=== PATIENT | male | born 1955 | race Caucasian/White ===

== ENCOUNTER 2016-03-04 00:12 | Emergency (ER) | payer MEDICAID ==
[~2016-03-04] VITALS: Ht 188 cm; Wt 70.3 kg
[~2016-03-04 00:12] MED LIST: AMOXIL500 MG PO; DARVOCET-N 1001 EACH PO; DOXYCYCLINE HY100 M4 PO; EC NAPROSYN500 MG PO; FLEXERIL10 MG PO; HYDROCODONE-APA1 TA1 PO; LORTAB 5/500 501 TAB PO; ROBAXIN500 MG PO; TAMIFLU 75MG CA75 MG PO; VALIUM10 MG PO
--- NOTE | 2016-03-04 00:28 | Emergency Room Report ---
History of Present Illness Time Seen by MD Ferrara Presenting Problem in Triage Pt arrived:Walked Presenting Problem:PT COMPLAINING PAIN IN HIS CHEST WHEN HE TAKES A DEEP BREATH. PT STATES HE HAS ALSO HAD A COUGH. PT STATES HIS PAIN HAS NOW GONE TO HIS BACK. 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 N Clinical Suspician of Infection? N Mental Status: 1 - Regular (Normal Baseline) Sepsis Risk:Low Sepsis Risk Have you (or family members/close friends) recently traveled outside the [place]? N If Yes, where/when: Have you had exposure to infectious disease within the past month? N TB? Other? Specify: Source patient, RN notes reviewed, old records Exam Limitations no limitations Comment cough and sob with no hemoptysis over the last 2 days Cardiac Chest Pain Chest pain indicative of cardiac No Timing/Duration this evening Severity moderate ALLERGIES Coded Allergies: No Known Allergies (03/04/16) Home Medications Reported Medications No Known Home Medications History Medical History General CAD? No Angina: No PR: No Hypertension? No Hyperlipidemia? No CHF? No DVT? No PE? No COPD? No Asthma? No Anemia? No GERD? No Gastric ulcers? No GI Bleed? No Hernia? No Thyroid Problems? No Hypothyroidism? No CVA? No Seizures? No Diabetes? No Renal Insuffiency? No End Stage Renal Disease? No UTI? No Stones? No BPH? No GB Disease: No Nephritic Syndrome? No Asplenia? No Hepatitis? No Sickle Cell Disease? No Arthritis? No Migraines? No Cataracts? No Glaucoma? No MRSA? No HIV? No TB? No Anxiety? No Depression? No Cancer? No More? No Immunization Hx DT/Tetanus 05/15/2015 Surgical Hx Previous Surgery?Y Appendix RIGHT SHOULDER RIGHT KNEE SINUS LEFT HAND-MIDDLE FINGER LEFT 2ND TOES Social History Smoking Hx Smoker: Never Smoker Tobacco: No Type N/A Are you/the child exposed to second-hand smoke: No Alcohol Alcohol: Yes Drugs none Review of Systems All Other Systems Reviewed and Negative Constitutional denies fever Eyes denies drainage ENT denies: ear pain, epistaxis, throat pain. Respiratory cough, shortness of breath, denies wheezing Cardiovascular chest pain, denies palpitations, denies syncope Gastrointestinal denies abdominal pain, denies diarrhea, denies vomiting Genitourinary denies: dysuria, frequency, hesitancy, hematuria. Musculoskeletal denies back pain, denies joint pain, denies neck pain Skin denies rash Psychiatric/Neurological denies headache, denies seizure Physical Exam Vital Signs Vital Signs Date Time Temp Pulse Resp B/P Pulse O2 O2 Flow FiO2 Ox Delivery Rate 03/04 0157 65 18 124/75 96 03/04 0153 18 03/04 0050 65 18 147/84 95 03/04 0013 98.2 71 18 150/90 97 - WBC >12,000 or <4,000 or 10% bands? 2 or more SIRS Criteria Met? B/P:124/75 MAP:110 Creatinine >2.0? UA output<0.5ml/kg/hr for 2 hrs? Platelet count >100,000? Lactate >2.0mmol/1? INR >1.2 or PTT > than 60 sec? Evidence of Organ Dysfunction? Provider documented clinical suspician of infection? N Sepsis Criteria Count: 0 Sepsis Risk: Low Sepsis Risk General Appearance no apparent distress Eye Exam - bilateral eye PERRL, bilateral eye EOMI Ear, Nose, Throat normal ENT inspection Neck supple Respiratory Status No: respiratory distress. Lung Sounds bilateral: lungs clear. 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 No Results/Orders Laboratory Tests 03/04/16 0221: Troponin I < 0.02 03/04/16 0030: Sodium 143, Potassium 3.6, Chloride 103, Carbon Dioxide 34 H, BUN 12, Creatinine 1.2, Estimated Creat Clear 67, Estimated GFR (MDRD) 62, Glucose 117 H, Calcium 9.4, Total Bilirubin 0.2, AST 30, ALT 26, Alkaline Phosphatase 98, Creatine Kinase 50, CK-MB (CK-2) Rel Index 1.2, CK and CKMB Interp 0.6, Troponin I < 0.02, Total Protein 8.2, Albumin 4.0, Globulin 4.2 H, Albumin/Globulin Ratio 1.0 L, WBC 12.4 H, RBC 5.43, Hgb 16.1, Hct 47.8, MCV 88.1, RDW 14.5, Plt Count 290, MPV 8.8, Gran % 58.4, Gran # 7.3, Lymphocytes % 28.4, Monocytes % 6.5 , Eosinophils % 6.1, Basophils % 0.6, Lymphocytes # 3.5, Monocytes # 0.8, Eosinophils # 0.8 H, Basophils # 0.1, PUBS MCHC 33.6, MCH 29.6, Alcohols 0 Current Medication Orders Sig/Elva Start time Last Medication Dose Route Stop Time Status Admin Ketorolac 0 .STK-MED ONE 03/04 149 DC Tromethamine .ROUTE Levofloxacin 0 .STK-MED ONE 03/04 148 DC .ROUTE Sodium Chloride 50 ML .STK-MED ONE 03/04 148 DC IV Ceftriaxone Sodium 0 .STK-MED ONE 03/04 147 DC IV Methylprednisolone 0 .STK-MED ONE 03/04 147 DC Sodium Succinate .ROUTE Ceftriaxone Sodium 1 GM ONCE ONE 03/04 144 DC 03/04 Sodium Chloride 50 ML IV 03/04 213 015 Ketorolac 30 MG ONCE ONE 03/04 144 DC 03/04 Tromethamine IV 03/04 145 015 Levofloxacin 500 MG ONCE ONE 03/04 144 DC 03/04 PO 03/04 145 015 Methylprednisolone 125 MG ONCE ONE 03/04 144 DC 03/04 Sodium Succinate IV 03/04 145 015 Aspirin 325 MG ONCE ONE 03/04 29 DC 03/04 PO 03/04 30 0021 Sodium Chloride 10 ML PRN PRN 03/04 29 AC IV 03/05 17 Aspirin 0 .STK-MED ONE 03/04 19 DC .ROUTE Orders Procedure Date/time Status TROPONIN I 03/04 214 Complete ALCOHOL 03/04 35 Complete 12 LEAD EKG-VERA (INITIAL) 03/04 18 Active ELECTROCARDIOGRAM REQUEST 03/04 18 Active CHEST(2 VIEWS-NOT PORTABLE) 01/03 0019 Active IV SALINE LOCK 03/04 18 Active CBC WITH AUTO DIFF 03/04 18 Complete CARDIAC ENZYMES 03/04 18 Complete CHEM 12 PROFILE 03/04 18 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 of ischemic chgs XRAY/CT/US XRAY/CT/US XRAY chest XR interpretation by reviewed by me Xray Results abnormal (old changes ) Departure Departure Time of Disposition 314 Disposition DC Home or Self Care(routine) Clinical Impression Primary Impression: Bronchitis Condition STABLE Patient Instructions DI for Cough -- Adult Additional Instructions fluids and see pcp for follo wup Discharge Counseling Counseled pt/family regarding diagnosis, test results, follow up needs Prescriptions Current Visit Scripts Ciprofloxacin HCl (Cipro 500MG TAB) 500 MG PO BID #14 TAB Prednisone (Prednisone 20MG) 20 MG PO BID #10 TAB ED Critical Care Critical Care No at 0316
[2016-03-04 00:54] LABS: HEMOGLOBIN 16.1 g/dL (14.1-18.0); LYMPH # 3.5 K/mm3 (0.7-4.5); LYMPH % 28.4 % (10-50)
[2016-03-04 01:17] LABS: BUN 12 mg/dL (7-18)
[2016-03-04 01:23] LABS: GFR (ESTIMATED) 62 ML/MIN (>60)
[2016-03-04] MEDS ORDERED: CIPRO 500MG TA500 MG PO (03:16)
[2016-03-04] MEDS ORDERED: PREDNISONE 20MG20 MG PO (03:16)
[2016-03-04 03:24] VITALS: BP 136/81
--- NOTE | 2016-03-04 06:25 | RADIOLOGY REPORT PS360 ---
CHEST(2 VIEWS-NOT PORTABLE) HISTORY: CHEST PAIN, COUGH COMPARISON: 05/21/2015 FINDINGS: The cardiomediastinal silhouette and pulmonary vascularity are within normal limits. Miliary calcified nodules are present consistent with old granulomatous disease. Fibrotic changes are present in the right lung base. Minimal left basilar atelectasis There is minimal blunting of the left CP angle consistent with small left effusion. The remaining lungs are clear. No acute bony anomalies IMPRESSION: 1. Old granulomatous disease. 2. Right basilar fibrotic change. 3. Mild left basilar atelectasis with small left effusion.
== END 2016-03-04 03:25 | disposition home or self-care (01) ==
LOC: ER 00:12
PROVIDERS: Emergency Medicine
DX: J20.9 Acute bronchitis, unspecified (principal)
CPT/HCPCS: G6040

== ENCOUNTER 2016-03-12 05:37 | Emergency (ER) | payer MEDICAID ==
[~2016-03-12] VITALS: Ht 188 cm; Wt 70.3 kg
[~2016-03-12 05:37] MED LIST changes: +CIPRO 500MG TA500 MG PO; +PREDNISONE 20MG20 MG PO
--- NOTE | 2016-03-12 05:57 | Emergency Room Report ---
History of Present Illness Time Seen by 05Stanislaw Presenting Problem in Triage Pt arrived:Walked Presenting Problem:REPORTS WAS SEEN IN ER LAST WEEK DX WITH BRONCHITIS, STARTED ON ABX AND STERIODS. MEDS COMPLETED AND GETTING WORSE. 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 N Clinical Suspician of Infection? N Mental Status: 1 - Regular (Normal Baseline) Sepsis Risk:Low Sepsis Risk Have you (or family members/close friends) recently traveled outside the [place]? N If Yes, where/when: Have you had exposure to infectious disease within the past month? N TB? Other? Specify: Source patient, RN notes reviewed, family, old records Exam Limitations no limitations Comment lt upper abd and lower chest pain with hx of gerd sx and no melena Cardiac Chest Pain Chest pain indicative of cardiac No Timing/Duration this evening Severity moderate ALLERGIES Coded Allergies: No Known Allergies (03/04/16) Home Medications Reported Medications No Known Home Medications History Medical History General CAD? No Angina: No VT: No Hypertension? No Hyperlipidemia? No CHF? No DVT? No PE? No COPD? No Asthma? No Anemia? No GERD? No Gastric ulcers? No GI Bleed? No Hernia? No Thyroid Problems? No Hypothyroidism? No CVA? No Seizures? No Diabetes? No Renal Insuffiency? No End Stage Renal Disease? No UTI? No Stones? No BPH? No GB Disease: No Nephritic Syndrome? No Asplenia? No Hepatitis? No Sickle Cell Disease? No Arthritis? No Migraines? No Cataracts? No Glaucoma? No MRSA? No HIV? No TB? No Anxiety? No Depression? No Cancer? No More? No Immunization Hx DT/Tetanus 05/15/2015 Surgical Hx Previous Surgery?Y Appendix RIGHT SHOULDER RIGHT KNEE SINUS LEFT HAND-MIDDLE FINGER LEFT 2ND TOES Social History Smoking Hx Smoker: Current Some Day Smoker Tobacco: No Alcohol Alcohol: Yes Drugs none Review of Systems All Other Systems Reviewed and Negative Constitutional denies fever Eyes denies drainage ENT denies: ear pain, epistaxis, throat pain. Respiratory denies cough, denies shortness of breath, denies wheezing Cardiovascular see HPI, chest pain, denies palpitations, denies syncope Gastrointestinal see HPI, abdominal pain, denies nausea, denies vomiting Genitourinary denies: dysuria, frequency, hesitancy, hematuria. Musculoskeletal denies back pain, denies joint pain, denies joint swelling, denies neck pain Skin denies rash Psychiatric/Neurological denies headache, denies seizure Physical Exam Vital Signs Vital Signs Date Time Temp Pulse Resp B/P Pulse O2 O2 Flow FiO2 Ox Delivery Rate 03/12 0719 79 18 166/94 96 03/12 0636 98.6 100 18 167/107 96 03/12 0540 98.6 100 18 156/107 96 - WBC >12,000 or <4,000 or 10% bands? 2 or more SIRS Criteria Met? B/P:166/94 MAP:123 Creatinine >2.0? UA output<0.5ml/kg/hr for 2 hrs? Platelet count >100,000? Lactate >2.0mmol/1? INR >1.2 or PTT > than 60 sec? Evidence of Organ Dysfunction? Provider documented clinical suspician of infection? N Sepsis Criteria Count: 1 Sepsis Risk: Low Sepsis Risk General Appearance no apparent distress Eye Exam - bilateral eye PERRL, bilateral eye EOMI Ear, Nose, Throat normal ENT inspection Neck supple Respiratory Status No: respiratory distress. Lung Sounds bilateral: lungs clear. 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 No Results/Orders Laboratory Tests 03/12/16 0600: Lactic Acid 1.3 03/12/16 06: Creatine Kinase 24 L, CK-MB (CK-2) Rel Index 2.1, CK and CKMB Interp < 0.5, Troponin I < 0.02 03/12/16 0600: Amylase 44, Lipase 178 03/12/16 0600: Sodium 139, Potassium 3.7, Chloride 103, Carbon Dioxide 29, BUN 15, Creatinine 1.2, Estimated Creat Clear 67, Estimated GFR (MDRD) 62, Glucose 127 H, Calcium 9.0, Total Bilirubin 0.8, AST 15, ALT 17, Alkaline Phosphatase 79, Total Protein 7.4, Albumin 3.6, Globulin 3.8 H, Albumin/Globulin Ratio 0.9 L, WBC 12.7 H, RBC 5.42, Hgb 16.1, Hct 47.1, MCV 86.8, RDW 14.8, Plt Count 308, MPV 8.9, Gran % 52.8, Gran # 6.7, Lymphocytes % 32.2, Monocytes % 8.3, Eosinophils % 5.9, Basophils % 0.8, Lymphocytes # 4.1, Monocytes # 1.1 H, Eosinophils # 0.8 H, Basophils # 0.1, PUBS MCHC 34.3, MCH 29.7 Current Medication Orders Sig/Elva Start time Last Medication Dose Route Stop Time Status Admin Diatrizoate Meglum/ 20 ML ONCE ONE 03/12 0730 UNV Diatrizoate Sod PO 03/12 0731 Iopamidol 75 ML ONCE ONE 03/12 0730 UNV 03/12 IV 03/12 0731 0720 Sodium Chloride 10 ML PRN PRN 03/12 0730 UNV 03/12 IV 03/12 0849 0720 Diatrizoate Meglum/ 0 .STK-MED ONE 03/12 0634 DC Diatrizoate Sod .ROUTE Diatrizoate Meglum/ 30 ML ONCE ONE 03/12 0630 DC 03/12 Diatrizoate Sod PO 03/12 0631 0635 Sodium Chloride 10 ML PRN PRN 03/12 0600 AC IV 03/13 0549 Orders Procedure Date/time Status DIET-NOTHING BY MOUTH 03/[address] SCAN REQ 03/12 630 Complete LIPASE 03/12 630 Complete AMYLASE 03/12 0531 Complete CARDIAC ENZYMES 03/12 0557 Complete IV SALINE LOCK 03/12 0549 Active CULTURE, BLOOD 03/12 0549 Active LACTIC ACID 03/12 0549 Complete COMPLETE METABOLIC PANEL 03/12 0549 Complete CBC WITH AUTO DIFF 03/[address] CHEST W/ CONTRAST 03/[address] ABD & PELVIS W/ CONTRAST 03/12 UNK Active XRAY/CT/US XRAY/CT/US 1 XRAY chest XR interpretation by reviewed by me Xray Results normal/NAD XRAY/CT/US 2 CT abdomen, pelvis, chest CT interpretation by discussed w/radiologist Time results known: 747 CT Results abnormal (nonspecific) Departure Departure Time of Disposition 747 Disposition DC Home or Self Care(routine) Clinical Impression Primary Impression: Abdominal pain Qualifiers: Abdominal location: left upper quadrant Qualified Code: R10.12 - Left upper quadrant pain Condition STABLE Patient Instructions DI for Abdominal Pain-Adult Additional Instructions see pcp for follow up Discharge Counseling Counseled pt/family regarding diagnosis, test results, medications/RX, follow up needs Prescriptions Current Visit Scripts No Known Home Medications ED Critical Care Critical Care No at 0752
[2016-03-12 06:21] LABS: HEMOGLOBIN 16.1 g/dL (14.1-18.0); LYMPH # 4.1 K/mm3 (0.7-4.5); LYMPH % 32.2 % (10-50)
--- NOTE | 2016-03-12 07:10 | RADIOLOGY REPORT PS360 ---
CHEST(2 VIEWS-NOT PORTABLE) HISTORY: Left-sided chest pain on breathing C/O PAIN COMPARISON: 03/04/2016 FINDINGS: The cardiomediastinal silhouette and pulmonary vascularity are within normal limits. Miliary calcified granulomas. No lobar consolidation or collapse. No acute bony abnormalities. IMPRESSION: No change with no acute finding
[2016-03-12] MEDS ORDERED: PROTONIX 40MG T40 MG PO (07:53)
[2016-03-12 08:17] VITALS: BP 163/98
--- NOTE | 2016-03-12 16:02 | RADIOLOGY REPORT PS360 ---
CT CHEST W/ CONTRAST INDICATION: Mid and upper chest pain radiating into the back CHEST PAIN,ESOPHAGEAL,STOMACH PAIN COMPARISON: None TECHNIQUE: Axial images are obtained with contrast. Sagittal and coronal reformatted images are reviewed as well. FINDINGS: There is no evidence of aortic aneurysm or dissection. Normal heart size. Minimal pericardial thickening anteriorly. No large central pulmonary embolus evident. The study is not tailored for the pulmonary arteries. No mediastinal or hilar mass. Small hiatal hernia. There is mild fibronodular changes present in both apices. A 6 mm noncalcified nodule is present in the right apex. There are multiple scattered calcified granulomas. No consolidation or collapse. There is hyperinflation with attenuation of the peripheral pulmonary vessels and peribronchial thickening consistent with obstructive chronic bronchitis. There is trace left pleural effusion. The right lobe of the thyroid gland is enlarged with multiple hypodensities. There is gynecomastia on both sides. IMPRESSION: 1. No evidence of aortic aneurysm or dissection. 2. Old granulomatous disease with suspected obstructive chronic bronchitis. 3. 6 mm noncalcified nodule right apex. Six-month follow-up recommended. 4. Trace left pleural effusion with minimal pericardial thickening anteriorly. 5. Small hiatal hernia. 6. Enlarged right lobe of the thyroid gland with multiple hypodense nodules IMPRESSION:
--- NOTE | 2016-03-12 16:07 | RADIOLOGY REPORT PS360 ---
CT ABD PELVIS W/ CONTRAST CLINICAL INDICATION: Abdominal pain, mid to upper abdominal pain radiating into the back CHEST PAIN,ESOPHAGEAL,STOMACH PAIN COMPARISON: None TECHNIQUE: Axial images obtained with sagittal and coronal reformats. PROCEDURE: Oral Contrast: None IV Contrast: 75 mL [id number]. FINDINGS: There is small left pleural effusion. The liver, spleen, pancreas, gallbladder, and adrenal glands are unremarkable. There is a 3 cm isodensity projecting off the medial aspect of the right kidney consistent with a renal cyst with a small calcification noted along the medial aspect and may be due to a small stone. No hydronephrosis. Para there is a moderate amount retained colonic feces in the ascending and transverse colon. No evidence of appendicitis or diverticulitis. No intestinal obstruction or free air. No acute bony anomalies. IMPRESSION: 1. No acute intra-abdominal or pelvic pathology. 2. Mild amount retained colonic feces. 3. Right renal cyst with nonobstructing stone along the superior pole the right kidney
== END 2016-03-12 08:17 | disposition home or self-care (01) ==
LOC: ER 05:37
PROVIDERS: Emergency Medicine
DX: R10.12 Left upper quadrant pain (principal); Z72.0 Tobacco use; K21.9 Gastro-esophageal reflux disease without esophagitis; J20.9 Acute bronchitis, unspecified
CPT/HCPCS: Q9967

== ENCOUNTER → 2016-06-17 | Outpatient (CLI) | payer MEDICAID ==
[~2016-06-17] MED LIST changes: +PROTONIX 40MG T40 MG PO
--- NOTE | 2016-06-17 17:06 | RADIOLOGY REPORT PS360 ---
US RUQ-(ABD LTD)1ORGAN/QUAD/FU HISTORY: RUQ PAIN ORDERING PHYSICIAN: Rocky Bearden MD PATIENT AGE: 60 years COMPARISON: None FINDINGS: PANCREAS: Unremarkable. No obvious mass or abnormal fluid collection. No ductal dilatation LIVER: No focal liver lesions demonstrated. Homogeneous echogenicity. No intrahepatic biliary ductal dilatation evident. There are few fatty areas within the liver RIGHT KIDNEY: 3 cm right renal cyst laterally. Mild right renal cortical scarring is noted. Normal size and echogenicity. No hydronephrosis GALLBLADDER: No gallstones, gallbladder wall thickening, pericholecystic fluid, or biliary dilatation. IMPRESSION: 1. Negative gallbladder ultrasound. 2. 3 cm right renal cyst
== END ==
LOC: RAD 07:47
DX: R10.11 Right upper quadrant pain (principal)

== ENCOUNTER → 2016-07-03 | Outpatient (CLI) | payer MEDICAID ==
--- NOTE | 2016-07-03 15:06 | RADIOLOGY REPORT PS360 ---
History and Indications: Chest pain palpitation Procedure: Patient exercised on Sanket protocol 7 1/2 minutes, resting heart rate was 73 beats per resting blood pressure 132/85, with exercise maximum heart rate achieved was 1 minute which is more than 85% of the maximum predicted heart rate and a blood pressure was 200/80. Test was stopped due to leg fatigue and shortness of breath, patient denied complained of chest pain. Patient has good exercise capacity achieved 10.1mets of workload on treadmill, the blood pressure response to exercise was hypertensive. Electrocardiogram: Resting electrocardiogram showed sinus rhythm premature ventricular complex, with exercise there is less than 1.[address] segment depression noted from the baseline EKG. The EKG portion of the exercise Myoview is negative for ischemia. Cardiac stress and resting SPECT images: Cardiac stress and the suspect images were obtained using technetium 99 Myoview 11.2 mCi at rest and 30.8 mCi at stress, gated SPECT further analysis of segmental wall motion and calculation of the ejection fraction also done. Cardiac stress and the suspect images show a mild fixed defect in the inferior wall with normal contractility in the gated SPECT is likely secondary to soft tissue attenuation, no reversible ischemia seen. Computer derived ejection fraction 60% with no obvious regional wall motion abnormality, right ventricle is normal size and contractility. Conclusion: 1. The EKG portion of the exercise Myoview is negative for ischemia, patient has good exercise capacity achieved 10.1mets of workload on treadmill the blood pressure response to exercise was hypertensive, test was started due to shortness of breath patient complained of chest pain. 2. No obvious scintigraphic evidence of reversible ischemia seen, computer derived ejection fraction 60% no obvious regional wall motion abnormality, right ventricle is normal size and contractility.
== END ==
LOC: RAD 11:02
DX: R07.2 Precordial pain (principal)
CPT/HCPCS: A9502